=== PATIENT | male | born 1945 | race Native Hawaiian/Other Pacific Islander ===

== ENCOUNTER 2017-04-24 15:40 | Outpatient (CLI) | payer OTHER ==
[2017-04-24 16:08] LABS: PLATELET COUNT 133 K/uL (142-355)
[2017-04-24 16:16] LABS: POTASSIUM 4.2 mmol/L (3.6-5.2); SODIUM 135 mmol/L (136-145)
== END 2017-04-24 16:40 | disposition home or self-care (01) ==
LOC: LAB 15:40
PROVIDERS: Nurse Practitioner Family
DX: R53.81 Other malaise (principal); Z79.899 Other long term (current) drug therapy; R25.1 Tremor, unspecified; F41.8 Other specified anxiety disorders; E55.9 Vitamin D deficiency, unspecified
CPT/HCPCS: 80053; 80061; 81000; 82306; 83036; 84154; 84403; 84436; 84443; 85027; 85651; 86039; 86430

== ENCOUNTER 2017-05-03 09:24 | Outpatient (CLI) | payer OTHER ==
[2017-05-02 14:17] LABS: POTASSIUM 3.7 mmol/L (3.6-5.2); SODIUM 137 mmol/L (136-145)
== END 2017-05-03 11:00 | disposition home or self-care (01) ==
LOC: US 09:24
PROVIDERS: Nurse Practitioner Family
DX: R79.89 Other specified abnormal findings of blood chemistry (principal); R94.5 Abnormal results of liver function studies
CPT/HCPCS: 80053; 80074